=== PATIENT | female | born 1950 | race Caucasian/White ===

== ENCOUNTER 2020-09-26 06:20 | Day surgery (SDC) | payer MEDICARE, BC, SELFPAY ==
[2020-09-20 10:26] VITALS: BMI 38.7
--- NOTE | 2020-09-24 14:19 | HO.ANESPROP2 ---
Documented by User: Moira Yuan 09/24/20 14:20 HPI - Anesthesia Eval Consult details Narrative: 69yo F for Colonoscopy PMFSH Past Medical History Medical History (Updated 09/20/20 @ 10:23 by Bárbara Dolan) Arthritis COVID-19 vaccine administered Elevated cholesterol GERD (gastroesophageal reflux disease) HTN (hypertension) Hx of spina bifida Surgical History Surgical History (Updated 09/20/20 @ 10:23 by Bárbara Dolan) H/O colonoscopy History of total right knee replacement Hx of section Hx of cholecystectomy Hx of wisdom tooth extraction Social History Social History (Updated 09/20/20 @ 10:28 by Bárbara Dolan) Household Members: Spouse Housing: House Are you a primary palliative care coordinator to a significant other at home: No Do you presently have visiting nurse or other home services: No Use of substances other than those prescribed or required for medical reasons: No Have you been hit, kicked, punched, or otherwise hurt by someone within the past year? 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 naproxen [Aleve] Allergy Intermediate Wheezing Verified 09/20/20 10:26 promethazine [Phenergan] Allergy Intermediate welt at Verified 09/20/20 10:26 injection site Home Medications Medication Instructions Recorded Confirmed Last Taken Type amlodipine 1 tab PO DAILY 09/20/20 09/20/20 09/26/20 History atorvastatin 1 tab PO DAILY 09/20/20 09/20/20 Unknown History cholecalciferol (vitamin D3) 50 mcg PO DAILY 09/20/20 09/20/20 Unknown History [Vitamin D3] clobetasol 1 appl TOPICAL BID 09/20/20 09/20/20 Unknown History omeprazole 1 cap PO DAILY 09/20/20 09/20/20 09/26/20 History turmeric 1,200 mg PO DAILY 09/20/20 09/20/20 Unknown History Exam Exam Date and Time: September 24, 2020 1419 Height,Weight and Vital Signs: Height 5 ft 2 in Weight 96.162 kg Assessment and Plan Assessment Anesthesia Assessment: Chart Reviewed Documented by User: Trey Matta MD 09/26/20 07:34 [facility] Past Medical History Medical History (Updated 09/20/20 @ 10:23 by Bárbara Dolan) Arthritis COVID-19 vaccine administered Elevated cholesterol GERD (gastroesophageal reflux disease) HTN (hypertension) Hx of spina bifida Surgical History Surgical History (Updated 09/20/20 @ 10:23 by Bárbara Dolan) H/O colonoscopy History of total right knee replacement Hx of section Hx of cholecystectomy Hx of wisdom tooth extraction Social History Social History (Updated 09/20/20 @ 10:28 by Bárbara Dolan) Household Members: Spouse Housing: House Are you a primary palliative care coordinator to a significant other at home: No Do you presently have visiting nurse or other home services: No Use of substances other than those prescribed or required for medical reasons: No Have you been hit, kicked, punched, or otherwise hurt by someone within the past year? 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 naproxen [Aleve] Allergy Intermediate Wheezing Verified 09/20/20 10:26 promethazine [Phenergan] Allergy Intermediate welt at Verified 09/20/20 10:26 injection site Home Medications Medication Instructions Recorded Confirmed Last Taken Type amlodipine 1 tab PO DAILY 09/20/20 09/20/20 09/26/20 History atorvastatin 1 tab PO DAILY 09/20/20 09/20/20 Unknown History cholecalciferol (vitamin D3) 50 mcg PO DAILY 09/20/20 09/20/20 Unknown History [Vitamin D3] clobetasol 1 appl TOPICAL BID 09/20/20 09/20/20 Unknown History omeprazole 1 cap PO DAILY 09/20/20 09/20/20 09/26/20 History turmeric 1,200 mg PO DAILY 09/20/20 09/20/20 Unknown History Exam Airway Mallampati Class: II TM Dist: >3cm Neck ROM: Full Loose/Missing/Broken Teeth: Yes Heart: RRR Assessment and Plan Assessment Anesthesia Assessment: Anesthesia Plan Discussed and Chart Reviewed Final Anesthetic Review NPO: Yes ASA Class: III Final Preanesthetic Review: No Changes in Pt Med Stat, Meds/Allgs Chart Reviewed, Consent Obtained/Reviewed and Anes Risks/Benef Reviewed Patient Risk: Low Procedure Risk: Low Anesthetic Plan Anesthetic Plan: MAC: Disposition: Standard PACU
[2020-09-26 06:41] VITALS: BP 141/72; PULSE 88; RESP 16; TEMP 36.9; O2SAT 95
[2020-09-26] MEDS: Lactated Ringers 1,000 ML 100 ML IVCONT (06:50)
[2020-09-26 08:23] VITALS: BP 93/46; PULSE 74; RESP 18; TEMP 36.7; O2SAT 98
--- NOTE | 2020-09-26 08:23 | PM.OP ---
Brief Operative Note Date of Service: 09/26/20 Pre-op diagnosis: Screening Post-op diagnosis: other (Diverticulosis, Colon lipoma) Procedure: Colonoscopy to the cecum and TI Surgeon: Hamzah Juarez Anesthesia: MAC Was an Settlement Processor used for this Procedure?: No Estimated blood loss (mL): 0 Pathology: none sent Condition: stable Disposition: PACU
[2020-09-26 08:38] VITALS: BP 110/66; PULSE 72; RESP 16; O2SAT 97
--- NOTE | 2020-09-26 11:25 | OP_ITS ---
SURGEON: Hamzah Juarez MD INDICATIONS: The patient presents for evaluation of colorectal cancer screening. Full consent has been obtained from her for this, including risks of bleeding and perforation. PREOPERATIVE DIAGNOSIS: Colorectal cancer screening. POSTOPERATIVE DIAGNOSIS: PROCEDURE PERFORMED: Colonoscopy to cecum and terminal ileum. ESTIMATED BLOOD LOSS: COMPLICATIONS: ANESTHESIA: Monitored anesthesia care. ASSISTANTS: SPECIMENS: POSTOPERATIVE DIAGNOSES: Colorectal cancer screening, diverticulosis, internal hemorrhoids, colon lipoma. DESCRIPTION OF PROCEDURE: The patient was placed in the left lateral decubitus position. The digital rectal exam revealed no abnormalities. The Olympus video pediatric colonoscope was entered into the rectum and advanced easily to the cecum. Once in the cecum, I did identify normal-appearing cecal pouch with appendiceal orifice and a normal-appearing ileocecal valve. The terminal ileum was cannulated and appeared normal. The scope was withdrawn back in the colon. The entire cecum and ileocecal valve appeared normal. The scope was slowly withdrawn assessing all mucosal surfaces carefully. Preparation was excellent. I did not visualize any sign of polyps, colitis, nor angiodysplasia. There was a moderate amount of sigmoid diverticulosis. At 40 cm, was what appeared to be a lipoma with normal overlying mucosa. It was quite soft. There was no sign of any polypoid tissue. In the rectum, scope was retroflexed visualizing internal hemorrhoids, but no other pathology. The rectal mucosa appeared normal. The scope was straightened out and withdrawn from the patient. She tolerated the procedure well and was returned to the recovery area in stable condition. IMPRESSION: 1. Diverticulosis. 2. Colon lipoma. 3. Small internal hemorrhoids. PLAN: Given the patient's negative exam, I would recommend a followup colonoscopy in 10 years for further screening. She will otherwise see me on a p.r.n. basis. MD ADDIS Tim/LI / [id number]
== END 2020-09-26 09:02 | disposition home or self-care (01) ==
PROVIDERS: PCP Nurse Practitioner Family; Visit Provider Internal Medicine
PROC: 0DJD8ZZ Inspection of Lower Intestinal Tract, Via Natural or Artificial Opening Endoscopic (ICD-10-PCS; CPT 45378; principal; 2020-09-26 07:30)
DX: Z12.11 Encounter for screening for malignant neoplasm of colon (principal); K57.30 Diverticulosis of large intestine without perforation or abscess without bleeding; K64.8 Other hemorrhoids; D17.5 Benign lipomatous neoplasm of intra-abdominal organs; K21.9 Gastro-esophageal reflux disease without esophagitis; I10 Essential (primary) hypertension; M19.90 Unspecified osteoarthritis, unspecified site; Q76.0 Spina bifida occulta; Z90.49 Acquired absence of other specified parts of digestive tract; Z79.899 Other long term (current) drug therapy; Z79.1 Long term (current) use of non-steroidal anti-inflammatories (NSAID); Z88.8 Allergy status to other drugs, medicaments and biological substances; Z91.040 Latex allergy status
CPT/HCPCS: G0121; J3010

== ENCOUNTER 2023-10-01 09:14 | Outpatient (REF) | payer MEDICARE, BC, OTHER, SELFPAY | END 2023-10-01 09:15 | disposition home or self-care (01) | LOC: HO.SH 09:14 | PROVIDERS: Visit Provider Physician Assistant | DX: Z01.118 Encounter for examination of ears and hearing with other abnormal findings (principal); H90.3 Sensorineural hearing loss, bilateral; H93.13 Tinnitus, bilateral | CPT/HCPCS: 92557; 92567 ==

== ENCOUNTER 2024-09-23 09:23 | Emergency (ER) | payer MEDICARE, BC, OTHER, SELFPAY ==
--- NOTE | 2024-09-23 | ECG_ITS ---
Test Reason : Dizziness Blood Pressure : */* mmHG Vent. Rate : 94 BPM Atrial Rate : 94 BPM P-R Int : 162 ms QRS Dur : 70 ms QT Int : 342 ms P-R-T Axes : 36 -8 25 degrees QTcB Int : 427 ms Normal sinus rhythm Minimal voltage criteria for LVH, may be normal variant ( R in aVL ) Anterior infarct , age undetermined Abnormal ECG No previous ECGs available Referred By: Generic ED Physician Electronically Signed By: Rich Asencio
--- NOTE | ~2024-09-23 | CT_ITS ---
EXAMINATION: CT HEAD NECK ANGIOGRAPHY WITH IV CONTRAST HISTORY: ataxia, L headache COMPARISON: There are no prior studies for comparison. TECHNIQUE: Helical axial images were obtained from the skull base to the vertex without contrast per standard departmental protocol. Subsequently, helical axial images were obtained from the aortic arch to the vertex after intravenous injection of contrast per standard Department protocol. MIP/3D reconstructions were obtained and reviewed. One or more of the following techniques was used for dose reduction: Automated exposure control, adjustment of the mA and/or kV according to patient size, use of iterative reconstruction technique. DLP: 1390 mGy-cm FINDINGS: CT BRAIN: BRAIN: There is mild prominence of the ventricular system and cortical sulci, consistent with atrophy. Scattered periventricular and subcortical white matter hypodensities are consistent with small vessel ischemic disease. There is no mass effect or midline shift. No intra or extra-axial fluid collections are identified. SINUSES/MASTOID AIR CELLS: The paranasal sinuses, mastoid air cells and middle ear cavities are clear and well pneumatized. ORBITS: The visualized orbits are unremarkable. BONES/SOFT TISSUES: The extracranial soft tissues are unremarkable. No suspicious lytic or sclerotic lesions. CTA NECK: AORTIC ARCH: The visualized portions of the arch as well as innominate, right subclavian, and left subclavian arteries show no hemodynamically significant stenosis. Right common carotid artery: There is no large vessel occlusion or hemodynamically significant stenosis. Right internal carotid artery: There is no large vessel occlusion or hemodynamically significant stenosis. Left common carotid artery: There is no large vessel occlusion or hemodynamically significant stenosis. Left internal carotid artery: There is no large vessel occlusion or hemodynamically significant stenosis. (Extracranial internal carotid artery stenosis estimates are based on use of distal ICA as the denominator.) Right vertebral artery: There is no large vessel occlusion or hemodynamically significant stenosis. Left vertebral artery: There is no large vessel occlusion or hemodynamically significant stenosis. CTA HEAD: Right intracranial ICA: There is no large vessel occlusion, hemodynamically significant stenosis, or aneurysm. Right MUSA: There is no large vessel occlusion, hemodynamically significant stenosis, or aneurysm. Right MCA: There is no large vessel occlusion, hemodynamically significant stenosis, or aneurysm. Left intracranial ICA: There is no large vessel occlusion, hemodynamically significant stenosis, or aneurysm. Left MUSA: There is no large vessel occlusion, hemodynamically significant stenosis, or aneurysm. Left MCA: There is no large vessel occlusion, hemodynamically significant stenosis, or aneurysm. Basilar artery: There is no large vessel occlusion, hemodynamically significant stenosis, or aneurysm. Superior cerebellar arteries: There is no large vessel occlusion, hemodynamically significant stenosis, or aneurysm. Right LAMINATION MACHINE OPERATOR: There is origin of the right posterior cerebral artery. There is no large vessel occlusion, hemodynamically significant stenosis, or aneurysm. Left LAMINATION MACHINE OPERATOR: There is origin of the left posterior cerebral artery. There is no large vessel occlusion, hemodynamically significant stenosis, or aneurysm. VEINS: Venous enhancement is within normal limits for this technique. SOFT TISSUES: The bilateral parotid, submandibular, and thyroid glands are unremarkable. No laryngeal abnormality is identified. There is no cervical lymphadenopathy. There is a 1.5 cm soft tissue nodule abutting distal aortic arch (series 10, image 1011). CT/CT angio head neck IMPRESSION: 1. No large vessel occlusion, hemodynamically significant stenosis, or aneurysm in the head and neck. 2. No acute intracranial findings. 3. 1.5 cm soft tissue nodule abutting the distal aortic arch. Follow-up chest CT is recommended. Electronically signed by: Hamzah Vilchis MD 09/23/2024 12:20 PM EDT
[2024-09-23 09:45] VITALS: BP 127/80; PULSE 99; RESP 18; TEMP 36.8; O2SAT 98; BMI 37.9
--- NOTE | 2024-09-23 09:53 | PC.NURSE ---
Provider notified of patients symptoms (headache, vision changes , x 2 days)
[2024-09-23 10:19] LABS: MANUAL DIFF FLAG NO
[2024-09-23 10:22] LABS: Basophils Absolute Auto 0.1 X10*3/uL (0.0-0.2); Basophils Percent Auto 0.8 % (0-2); Eosinophils Absolute Auto 0.1 X10*3/uL (0.0-0.4); Eosinophils Percent Auto 1.3 % (0-4); Hematocrit 43.6 % (37.0-47.0); Hemoglobin 14.6 g/dl (12.0-16.0); Imm Gran Abs Auto 0.01 X10*3/uL (0.00-0.03); Imm Gran Pct Auto 0.1 % (0.0-0.4); Lymphocytes Absolute Auto 1.6 X10*3/uL (1.2-4.9); Lymphocytes Percent Auto 22.5 % (20-40); Mean Corpuscular HGB Conc 33.5 g/dl (31.0-35.0); Mean Corpuscular Hemoglobin 30.4 pg (27.0-33.0); Mean Corpuscular Volume 90.8 fL (80.0-98.0); Mean Platelet Volume 9.8 fL (9.4-12.3); Monocytes Absolute Auto 0.4 X10*3/uL (0.1-1.2); Monocytes Percent Auto 5.9 % (2-11); Neutrophils Absolute Auto 4.9 x10*3/uL (2.0-8.3); Neutrophils Percent Auto 69.4 % (45-73); Platelet Count 320 X10*3/uL (160-400); Red Cell Distribution Width 14.7 % (11.0-16.0); White Blood Count 7.1 X10*3/uL (4.8-10.8)
[2024-09-23 10:36] LABS: Alanine Aminotransferase 23 U/L (0-31); Albumin Level 4.7 g/dL (3.5-5.0); Alkaline Phosphatase 80 U/L (39-117); Anion Gap 13 (12-20); Aspartate Amino Transferase 24 U/L (5-31); Bilirubin Total 1.5 mg/dL (0.0-1.0); Blood Urea Nitrogen 13 mg/dL (9-16); Calcium 9.9 mg/dL (8.4-10.2); Carbon Dioxide 24 mmol/L (22-29); Chloride 112 mmol/L (96-108); Creatinine Clr Calc Pharmacy 88.8; Estimated Glomerular Filt Rate > 60; Glucose Random 120 mg/dL (60-115); Potassium 3.6 mmol/L (3.3-5.1); Sodium 145 mmol/L (135-145); Total Protein 7.5 g/dL (6.5-8.0)
--- NOTE | 2024-09-23 10:50 | ED.DIZZY ---
HPI - Dizziness General Chief Complaint: Dizziness Stated Complaint: Dizzy Weak Time Seen by Provider: 09/23/24 10:46 History of Present Illness ED Provider: Frankie Dodd MD HPI Narrative: 73 patient presents for recurrent vertiginous symptoms patient has had vertigo in the past and she previously was prescribed meclizine. She says when she woke this morning she felt suddenly off balance slightly vertiginous she has chronic tinnitus unchanged. No headache no head strike no recent falls denies hand clumsiness or focal motor or sensory complaints Related Data Home Medications ?Medication ?Instructions ?Recorded ?Confirmed amlodipine 5 mg tablet 1 tab PO DAILY 09/20/20 09/20/20 atorvastatin 20 mg tablet 1 tab PO DAILY 09/20/20 09/20/20 cholecalciferol (vitamin D3) 50 50 mcg PO DAILY 09/20/20 09/20/20 mcg (2,000 unit) capsule (Vitamin D3) clobetasol 0.05 % scalp solution 1 appl topical BID 09/20/20 09/20/20 omeprazole 20 mg capsule,delayed 1 cap PO DAILY 09/20/20 09/20/20 release turmeric 400 mg capsule 1,200 mg PO DAILY 09/20/20 09/20/20 Allergies Allergy/AdvReac Type Severity Reaction Status Date / Time latex Allergy Intermediate can have Verified 09/23/24 09:49 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 naproxen [Aleve] Allergy Intermediate Wheezing Verified 09/23/24 09:49 promethazine [Phenergan] Allergy Intermediate welt at Verified 09/23/24 09:49 injection site PMFSH Past Medical History Medical History (Updated 09/24/24 @ 00:00 by Pari Liu) COVID-19 vaccine administered Hx of spina bifida Arthritis HTN (hypertension) GERD (gastroesophageal reflux disease) Elevated cholesterol Surgical History (Updated 09/20/20 @ 10:23 by Bárbara Dolan RN) Hx of wisdom tooth extraction Hx of cholecystectomy Hx of section History of total right knee replacement H/O colonoscopy Social History Social History (Updated 09/20/20 @ 10:28 by Bárbara Dolan RN) Household Members: Spouse Housing: House Are you a primary dialysis patient care technician to a significant other at home: No Do you presently have visiting nurse or other home services: No Smoked in Last 30 Days: No Use of substances other than those prescribed or required for medical reasons: No Advance Directives: No Advance Directives Information Provided: Yes Physical Exam Vital Signs: Vital Signs: Last Vital Signs Temp 98.3 F 09/23/24 14:18 Pulse 70 09/23/24 14:18 Resp 18 09/23/24 14:18 BP 142/76 H 09/23/24 14:18 Pulse Ox 98 09/23/24 14:18 O2 Del Method Room Air 09/23/24 14:18 BMI result Body Mass Index 37.9 Const: Other: GENERAL: Well appearing. No apparent distress. Alert. HEAD/NECK: Normal to inspection. Neck supple. No cervical lymphadenopathy. EYES: Normal to inspection. Sclera non-icteric. ENMT: External nose normal. RESPIRATORY: Respiratory effort normal. Lungs clear to auscultation bilaterally. CARDIOVASCULAR: Regular rate. Normal rhythm. No murmur. No rubs. GI: Soft, non-tender, non-distended. No rebound or guarding. No masses palpable. No hepatosplenomegaly. SKIN: No jaundice. NEUROLOGICAL: Alert. PSYCHIATRIC: Alert. Appearance appropriate for situation. Attitude cooperative. OTHER: Comprehensive Neuro exam: Face symmetric, tongue midline, strong symmetric eye closure, pupils symmetric and reactive to light, intact sensation to the face throughout, intact strong face deviation and shoulder shrug. Sensation intact to light touch throughout normal, steady gait. Cerebellar testing normal including gait finger-nose rapid alternating movement 5 out of 5 strength in bilateral upper extremities, 5 and 5 strength in lower extremities Medications Administered Discontinued Medications Generic Name Dose Route Start Last Admin Trade Name Miladq PRN Reason Stop Dose Admin Acetaminophen 650 mg 09/23/24 10:49 09/23/24 11:23 Acetaminophen 325 Mg Tablet PO 09/23/24 10:50 650 mg ONCE ONE Administration Iohexol 100 ml 09/23/24 12:02 09/23/24 12:03 Iohexol 350 Mg/Ml 100 Ml Infus..Btl IV 09/23/24 12:03 70 ml ONCE ONE Administration Meclizine HCl 25 mg 09/23/24 10:49 09/23/24 12:21 Meclizine Hcl 25 Mg Tablet PO 09/23/24 10:50 Not Given ONCE ONE Ondansetron HCl 4 mg 09/23/24 10:49 09/23/24 11:23 Ondansetron Odt 4 Mg Tab.Kushal MCNEILL 09/23/24 10:50 4 mg ONCE ONE Administration Medical Decision Making Medical Decision Making [facility] Narrative: 73-year-old female with vertigo chronic tinnitus this is recurrent somewhat positional she has a normal reassuring neurologic exam here. CTA head and neck exclude cervical cranial dissection bleed or mass. She has no presyncopal symptoms and her examination and ECG are reassuring. Likely peripheral vertigo favored over central vertigo Meclizine with relief from home. Mild headache also relieved with Tylenol in the ED Admission/Observation Consideration of admission/observation: Escalation of care including admission/observation considered Lab Data 09/23/24 10:08 09/23/24 10:08 Labs: Lab Results 09/23/24 09/23/24 Range/Units 10:08 12:31 WBC 7.1 (4.8-10.8) X10*3/uL RBC 4.80 (4.20-5.50) X10*6/uL Hgb 14.6 (12.0-16.0) g/dl Hct 43.6 (37.0-47.0) % MCV 90.8 (80.0-98.0) fL MCH 30.4 (27.0-33.0) pg MCHC 33.5 (31.0-35.0) g/dl RDW 14.7 (11.0-16.0) % Plt Count 320 (160-400) X10*3/uL MPV 9.8 (9.4-12.3) fL Immature Gran % (Auto) 0.1 (0.0-0.4) % Neut % (Auto) 69.4 (45-73) % Lymph % (Auto) 22.5 (20-40) % Roberts % (Auto) 5.9 (2-11) % Eos % (Auto) 1.3 (0-4) % Baso % (Auto) 0.8 (0-2) % Lymph # (Auto) 1.6 (1.2-4.9) X10*3/uL Roberts # (Auto) 0.4 (0.1-1.2) X10*3/uL Eos # (Auto) 0.1 (0.0-0.4) X10*3/uL Baso # (Auto) 0.1 (0.0-0.2) X10*3/uL Abs Immat Gran (auto) 0.01 (0.00-0.03) X10*3/uL Absolute Neuts (auto) 4.9 (2.0-8.3) x10*3/uL Absolute Nucleated RBC 0.000 (0.0-0.012) X10*3/uL Nucleated RBC % (auto) 0.0 (0.0-0.2) /100WBC Hold Blue Top SEE NOTE Sodium 145 (135-145) mmol/L Potassium 3.6 (3.3-5.1) mmol/L Chloride 112 H (96-108) mmol/L Carbon Dioxide 24 (22-29) mmol/L Anion Gap 13 (12-20) BUN 13 (9-16) mg/dL Creatinine 0.62 (0.5-1.4) mg/dL Estim Creat Clear Calc 88.8 Estimated GFR > 60 Random Glucose 120 H (60-115) mg/dL Calcium 9.9 (8.4-10.2) mg/dL Total Bilirubin 1.5 H (0.0-1.0) mg/dL AST 24 (5-31) U/L ALT 23 (0-31) U/L Alkaline Phosphatase 80 (39-117) U/L Total Protein 7.5 (6.5-8.0) g/dL Albumin 4.7 (3.5-5.0) g/dL Urine Color Yellow Urine Appearance Clear Urine pH 7.0 (5.0-9.0) Ur Specific Sanderson 1.015 (1.005-1.025) Urine Protein Negative (Neg-Trace) mg/dL Urine Glucose (UA) Negative (Negative) mg/dL Urine Ketones Negative (Negative) mg/dL Urine Blood Negative (Negative) Urine Nitrite Negative (Negative) Ur Leukocyte Esterase Trace H (Negative) Urine RBC 0-2 (0-2) /HPF Urine WBC 0-5 (0-5) /HPF Ur Squamous Epith Cells 6-10 (0-2) /HPF Urine Bacteria None Seen (None Seen) Hyaline Casts 0-2 (0-2) /LPF Independent Interpretation I performed an independent interpretation of an: EKG (Sinus rhythm rate 94 QTC 427 no acute ischemic changes, VA 162) Discharge Plan Discharge Clinical Impression: Vertigo, Apical lung nodule Patient Disposition: Home, Self-Care Instructions: Vertigo (DC), Pulmonary Nodules (ED) Additional Instructions: DISCHARGE DIAGNOSES: Vertigo, chronic tinnitus unclear cause less likely to be central or stroke as we discussed. Incidental finding of lung nodule this needs to be follow up with your primary care doctor see Radiology report below HISTORY OF PRESENTATION: Dizziness EMERGENCY DEPARTMENT COURSE,TESTS, TREATMENTS: While in the ED today you had a CT of your neck with views of your vessels no abnormalities were seen to suggest an obvious cause of your vertigo and incidental lung nodule was identified your lab work was normal and reassuring DISCHARGE MEDICATIONS: ?[We have made no changes to your regular medication regimen] FOLLOW-UP: ?Call your primary or general physician soon as possible to discuss your symptoms, your ED visit and to discuss follow up plans Call your primary doctor for follow up particularly in regards to the pulmonary nodule INSTRUCTIONS ?& RETURN PRECAUTIONS: If any symptoms change first call your primary physician, if it is after-hours your primary doctors office should have a provider avionics technician you can speak with. If the symptoms are severe or very concerning to you then call 911 or return to the ED. If you develop worsening dizziness, unsteady when walking shaking limbs focal areas of weakness numbness or tingling come back to the emergency department IMPRESSION: 1. Acute uncomplicated proximal sigmoid diverticulitis. 2. Moderate descending and sigmoid colonic diverticulosis. 3. Moderate-sized paraesophageal hiatus hernia. Frankie Dodd MD Emergency Physician [facility] Prescriptions: No Action atorvastatin 20 mg tablet 1 tab PO DAILY amlodipine 5 mg tablet 1 tab PO DAILY omeprazole 20 mg capsule,delayed release(DR/EC) 1 cap PO DAILY clobetasol 0.05 % solution 1 appl topical BID cholecalciferol (vitamin D3) [Vitamin D3] 50 mcg (2,000 unit) Capsule 50 mcg PO DAILY turmeric 400 mg Capsule 1,200 mg PO DAILY Interventions: ED Discharge Assessment Last Done: 09/23/24 14:18 Discharge Date/Time: 09/23/24 14:19 Print Language: [place]
--- OUTSIDE RECORDS SUMMARY | 2024-09-23 11:01 | XMS_ITS | Data Portability ---
Author Organization [facility], [facility] Address [address] [place] [address] Assessment No assessment recorded. Plan of Treatment Reminders Order Date Submit Date Provider Last Modified By Organization Details Last Modified Time Details Appointments None record ed. Lab None record ed. Referral None record ed. Procedures None record ed. Surgeries None record ed. Imaging None record ed. Medication Orders None record ed. Patient TargetsNo targets recorded. Patient InstructionsNo instructions recorded. Reason for Referral None Reported. Problems Name Problem SNOMED Code Status Onset Date Resolution Date Notes Provider Name and Address Organization Details Recorded Time Dry eyes 136368009 Active 2007 Not Available [facility] 3 03:14:41 Red eye Completed 200703/23/2013 Not Available [facility] 3 02:04:06 Myopia 60111023 Active 2006 Not Available [facility] 3 03:14:41 Astigmatis m 34446505 Active 2006 Not Available [facility] 3 03:14:41 Blephariti s 58992913 Active 2006 Not Available [facility] 3 03:14:41 Chronic allergic conjunctiv itis 53499966 Active 2007 Not Available [facility] 3 03:14:41 Pain in eye 33102841 Completed 200703/23/2013 Not Available [facility] 3 02:03:50 Problem Notes None recorded. Medical Equipment None Reported. Medications Name Sig Start Date Stop Date Status Note LastModified by Organization Details LastModified Time Alrex 0.2 % eye drops,s uspensi on Instill 1 drop into affected eye(s) by ophthalmic route 3 times per day as needed 011 active Not Available Not Available Not Avai lable Vitals None Recorded Social History None recorded. Functional Status None recorded. Mental Status None recorded. Family History Nothing Reported. Medical History No medical history recorded. Gynecological HistoryNo gynecological history recorded. Obstetrics History GPAL:G 0 P 0 0 0 0 Past Encounters Encounter ID Performer Location Encounter Start Date Encounter Closed Date Diagnosis/Indication Diagnosis SNOMED-CT Code Diagnosis ICD10 Code Diagnosis Note [id number] Moira Carrasco, OD [facility] [address] [address] 01/25/2007 07:48:40 05/24/2008 02:02:29 [id number] [facility], [address] [address] 02/26/2007 12:51:54 02/26/2007 12:53:06 [id number] Richard Rodriguez, OD [facility], [address] [address] 04/04/2008 11:39:28 04/04/2008 12:13:10 [id number] Richard Rodriguez, OD [facility], [address] [address] 04/11/2008 09:02:41 04/11/2008 09:37:39 [id number] Richard Rodriguez, OD [facility], [address] [address] 04/18/2008 08:21:21 04/18/2008 12:49:31 [id number] Tori B[facility], [address] [address] 01/03/2009 08:42:46 01/03/2009 10:13:36 Health Concerns Section Related Observation LastModified by Organization Detai ls LastModified Time None Recorded Concern Status LastModified by Organization Details LastModified Time None Recorded Advance Directives Directive None Recorded Payers Encounter Date Sequence Insurance Name Policy Number Policy Jhon Covered Member ID John Member ID Guarantor Name 02/26/2007 1 [facility] [id number] Umang Katz [id number] Leti Katz 04/04/2008 1 [employer]: [employer] Leti Katz [id number] Leti Katz 04/11/2008 1 [employer]: [employer] Leti Katz [id number] Leti Katz 04/18/2008 1 [employer]: [employer]EE PRO[employer] Leti Katz [id number] Leti Katz 01/03/2009 1 [facility]: [employer]EE PRO[employer] Leti Katz [id number] Leti Katz OBGyn Episode No OBEpisode recorded.
[2024-09-23 11:03] VITALS: BP 134/79; PULSE 84; RESP 16; TEMP 36.7; O2SAT 94
--- NOTE | 2024-09-23 11:12 | PC.NURSE ---
c/o left sided headache (intermittent) with intermittentdizziness (when opens eyes the room jiggles). No unilat neuro deficits. has had neck pain and received PT for that.
[2024-09-23] MEDS: Acetaminophen 325 MG TABLET 650 MG PO (11:23)
[2024-09-23] MEDS: Ondansetron ODT 4 MG TAB.RAPDIS TRANSLINGU (11:23)
[2024-09-23] MEDS: iohexoL 350 MG/ML 100 ML INFUS..BTL IV (12:03)
[2024-09-23 12:38] LABS: Appearance Urine Clear; Color Urine Yellow; Glucose Urine UA Negative (Negative); Leukocyte Esterase Urine Trace (Negative); Nitrite Urine Negative (Negative); Specific Gravity - Urine 1.015 (1.005-1.025); UMIC TRIGGER UACC YES; Urine Blood Negative (Negative); Urine Ketones Negative (Negative); Urine Protein Negative (Neg-Trace)
[2024-09-23 12:40] LABS: Bacteria Urine None Seen (None Seen); Hyaline Casts Urine 0-2 /LPF (0-2); RBC Urine 0-2 /HPF (0-2); WBC Urine 0-5 /HPF (0-5)
[2024-09-23 13:11] VITALS: BP 143/71; PULSE 76; RESP 14; TEMP 36.6; O2SAT 90
[2024-09-23 13:25] VITALS: O2SAT 97
[2024-09-23 14:18] VITALS: BP 142/76; PULSE 70; RESP 18; TEMP 36.8; O2SAT 98
== END 2024-09-23 14:19 | disposition home or self-care (01) ==
PROVIDERS: Emergency Provider Emergency Medicine; PCP Nurse Practitioner Family
DX: R42 Dizziness and giddiness (principal); R91.1 Solitary pulmonary nodule; R94.31 Abnormal electrocardiogram [ECG] [EKG]; Z79.899 Other long term (current) drug therapy
CPT/HCPCS: 36415; 70496; 70498; 80053; 81001; 85025; 93005; 99284; 99285; Q9967

== ENCOUNTER → 2024-09-23 09:59 | Outpatient (BNV) | payer MEDICARE, BC, OTHER, SELFPAY | PROVIDERS: Emergency Provider Emergency Medicine; PCP Nurse Practitioner Family; Visit Provider Internal Medicine Cardiovascular Disease | DX: R94.31 Abnormal electrocardiogram [ECG] [EKG] (principal); R42 Dizziness and giddiness | CPT/HCPCS: 93010 ==

== ENCOUNTER → 2024-09-23 10:48 | Outpatient (BNV) | payer MEDICARE, BC, OTHER, SELFPAY | PROVIDERS: Emergency Provider Emergency Medicine; PCP Nurse Practitioner Family; Visit Provider Radiology Diagnostic Radiology | DX: R51.9 Headache, unspecified (principal); R27.0 Ataxia, unspecified | CPT/HCPCS: 70496; 70498 ==